=== PATIENT | female | born 1985 | race Caucasian/White ===

== ENCOUNTER 2021-12-21 11:04 | Emergency (ER) | payer SELFPAY ==
--- NOTE | 2021-12-21 11:11 | XR_ITS ---
WS: [id number] Exam: XR foot RT min 3V* [id number] Date/Time of Exam: 12/21/2021 11:20 AM Reason For Exam: foot pain There is a nondisplaced fracture of the distal phalanx of the great toe. No other acute fractures are identified. Soft tissue swelling of the great toe. No dislocation. No soft tissue foreign bodies. XR/XR foot RT min 3V* [id number] IMPRESSION: 1. Nondisplaced fracture of the distal phalanx of the great toe with soft tissu e swelling.
[2021-12-21 12:57] VITALS: RESP 14; BMI 26.6
--- NOTE | 2021-12-21 13:01 | ED_ITS ---
HPI - Extremity Problem General: Chief complaint: Extremity Injury, Lower Stated complaint: right foot injury Time Seen by Provider: 12/21/21 12:59 History of Present Illness: Patient is a 36-year-old female comes to the ED with right foot injury. Injury occurred around 4:00 this morning. She says she dropped a pallet gustavo onto her great toe of right foot. She now has 7 out of 10 pain in her right great toe. She is swelling and ecchymosis of toe as well. Associated symptoms: Deny chest pain, fever(s) or rash Review of Systems Const: Denies: fever(s), chills or fatigue Eyes: Denies: change in vision or eye discomfort ENMT: Denies: throat pain, odynophagia, nasal discharge or nasal congestion Card: Denies: chest pain, palpitations, edema, swelling of feet/ankles, dyspnea on exertion or orthopnea Resp: Denies: dyspnea, productive cough or non-productive cough GI: Denies: abdominal pain, nausea, vomiting, diarrhea, constipation or hematochezia : Denies: flank pain, dysuria or hematuria Musc: Reports: extremity pain (Right foot-great toe pain); Denies: neck pain, back pain or extremity swelling Skin/Breast: Denies: rash or new lesions Neuro: Denies: headache(s), numbness in extremities or weakness in extremities [facility] ED PFSH: Medical History (Updated 12/22/21 @ 07:35 by REINALDO Bustos) No pertinent family history Surgical History (Updated 12/22/21 @ 07:35 by REINALDO Bustos) No pertinent past surgical history Physical Exam Const: COMMON NORMALS: no acute distress, patient oriented x3 and alert GENERAL APPEARANCE: cooperative and comfortable HENMT: COMMON NORMALS: normocephalic HEAD & SCALP: normocephalic MOUTH: Normal oral and palatal mucosa present THROAT: posterior oropharynx normal and uvula midline Neck/C-Spine: COMMON NORMALS: supple GENERAL: Yes normal visual inspection Resp: COMMON NORMALS: normal respiratory effort, No retractions, No use of accessory muscles and clear to auscultation bilaterally AUSCULTATION: clear to auscultation bilaterally Cardio: COMMON NORMALS: regular rate, regular rhythm, S1 normal heart sound present, S2 normal heart sound present, No gallops present (Cardio), No clicks present (Cardio), No murmurs present (Cardio) and Peripheral pulses 2+ throughout RATE: regular rate RHYTHM: regular rhythm HEART SOUNDS: S1 normal heart sound present and S2 normal heart sound present PERIPHERAL PULSES: Peripheral pulses 2+ throughout GI: COMMON NORMALS: Normal to inspection, nondistended, normoactive bowel sounds present, Soft to palpation, non-tender and no masses PALPATION: Yes Soft to palpation : COMMON NORMALS: Yes no CVA tenderness BLADDER/KIDNEY EXAM: Yes no CVA tenderness Back/Pelvis: COMMON NORMALS: no CVA tenderness Extremity: NARRATIVE EXTREMITY EXAM: Right foot?great toe?ecchymosis and swelling noted. Subungual hematoma noted as well. Tenderness to palpation. Limited range of motion due to pain. Neuro: COMMON NORMALS: patient oriented x3 SENSORIUM/ORIENTATION: Yes alert GAIT: Yes Normal gait present Skin: GENERAL SKIN EXAM: dry skin Course Vital Signs: Vital signs: Vital Signs Pulse Rate 86 12/21/21 13:52 Respiratory Rate 14 12/21/21 13:52 Blood Pressure 130/89 12/21/21 13:52 Pulse Oximetry 98 12/21/21 13:52 Oxygen Delivery Me thod 12/21/21 13:52 MDM - Extremity (Nontraumatic) Medical Decision Making Patient is a 36-year-old female comes to the ED with right foot great toe injury. Patient dropped a pallet gustavo on her right great toe. Vitals are stable. Right foot?great toe?ecchymosis and swelling noted. Subungual hematoma noted as well. Tenderness to palpation. Limited range of motion due to pain. X-ray of right foot showed a nondisplaced fracture of the distal phalanx of the great toe. I placed order with case management for patient to be referred to podiatry for follow-up on toe fracture. Patient was diagnosed with toe fracture and discharged home with prescription for some hydrocodone for acute pain, ibuprofen 800 mg and antibiotic. She is discharged home with a stiff sole shoe and crutches. Return to ED precautions given. Patient understood and agreed with plan. Lab Data Radiology Impressions Foot X-Ray 12/21/21 11:11 IMPRESSION: 1. Nondisplaced fracture of the distal phalanx of the great toe with soft tissue swelling. Discharge Plan Discharge Patient Disposition: Home Clinical Impression: Fracture of toe of right foot Qualifiers: Encounter type: initial encounter Toe: great toe Fracture type: open Phalanx: distal Fracture alignment: nondisplaced Qualified Code(s): S92.424B - Nondisplaced fracture of distal phalanx of right great toe, initial encounter for open fracture Condition: Stable Prescriptions: New cephalexin 500 mg capsule 500 mg PO Q6H 7 Days Qty: 28 0RF ibuprofen 800 mg tablet 800 mg PO Q8H PRN (Reason: pain) Qty: 30 0RF Discharge Orders: Discharge ED (Routine); Ordered 12/21/21 Ordered By: Thien Blake Discharge Diet: Regular Discharge Activity: Increase activity as tolerated Patient Instructions: Fractures - Phalanx (Toe), Opioid Safety Activity Restrictions/Additional Instructions: Follow-up with medical provider as directed. Case management should be contacted in the next several days set up an appointment with podiatry for follow-up on toe fracture. Take medications as prescribed. Rest ice and elevate right foot. Return to the ER or your medical provider if condition worsens. Please read and understand discharge instructions. Thank you for choosing [facility] for your healthcare needs today. Please realize this is an emergency room and that we are providing you with a medical screening exam and this may not be complete and all inclusive of all the testing and or work up that you may need to determine your ailment or severity of your illness. It is very important that you follow up as instructed or that you return to the Emergency Department should you have concerns or if your condition changes or worsens in any way. Coding Level of Care Code ED [employer] Professor for [employer] Exam Comprehensive
[2021-12-21] MEDS: ketorolac 60 mg/2 mL INJ IM (13:38)
--- NOTE | 2021-12-21 13:45 | PC.SOCIAL ---
Addendum entered by Cora Vital 01/27/22 13:34: records and information manager received the following message from the ortho clinic regarding follow up appointment: Left vm/mailed letter for pt to call back and schedule with Dr. Hudson Original Note: Podiatry Follow-Up Referral sent to podiatry for follow up regarding toe fracture. Clinic to contact patient with appt date/time.
[2021-12-21 13:52] VITALS: BP 130/89; PULSE 86; RESP 14; O2SAT 98
== END 2021-12-21 13:45 | disposition home or self-care (01) ==
PROVIDERS: Emergency Provider Physician Assistant
DX: S92.424B Nondisplaced fracture of distal phalanx of right great toe, initial encounter for open fracture (principal); W20.8XXA Other cause of strike by thrown, projected or falling object, initial encounter; S90.211A Contusion of right great toe with damage to nail, initial encounter
CPT/HCPCS: 73630; 96372; 99284; J1885